=== PATIENT | female | born 1980 | race Caucasian/White ===

== ENCOUNTER 2018-05-10 06:04 | Day surgery (SDC) | payer MEDICAID ==
[2018-05-10] MEDS: CEFAZOLIN 2 GM/50 ML (PMX) 50 ML IVPB (06:00)
[2018-05-10] MEDS: LACTATED RINGER'S 1,000 ML IV* (06:00)
[2018-05-10] MEDS ORDERED: CEFAZOLIN 1 GM INJ (07:00)
[2018-05-10] MEDS ORDERED: DIPHENHYDRAMINE 50 MG INJ IV (07:30)
[2018-05-10] MEDS ORDERED: LABETALOL HCL 20MG INJ IV (07:30)
[2018-05-10] MEDS ORDERED: MEPERIDINE 25 MG INJ IV (07:30)
[2018-05-10] MEDS ORDERED: FENTAnyl 50 MCG/ML VIAL IV ×3 (07:30)
[2018-05-10] MEDS ORDERED: HYDROmorphONE 1 MG/5 ML IV SYRINGE IV ×3 (07:30)
[2018-05-10] MEDS ORDERED: PROCHLORPERAZINE 10 MG INJ IV (07:30)
[2018-05-10] MEDS ORDERED: ONDANSETRON 4 MG INJ IV (07:30)
[2018-05-10] MEDS ORDERED: hydrALAzine 20 MG INJ IV (07:30)
[2018-05-10 07:31] LABS: ADD MAN DIFF? NO
[2018-05-10 07:34] LABS: WHITE BLOOD COUNT 5.6 10^3/ul (4.8-10.8)
[2018-05-10 07:34] LABS: BASOPHILS % 0.4 % (0.0-2.0); EOSINOPHILS # 0.2 10^3/ul (0.0-0.5); EOSINOPHILS % 4.1 % (0.0-7.0); HEMATOCRIT 38.2 % (37.0-47.0); HEMOGLOBIN 12.6 g/dl (12.0-16.0); LYMPHOCYTES # 1.7 10^3/ul (0.8-2.9); LYMPHOCYTES % 30.9 % (15.0-51.0); MEAN CORPUSCULAR HEMOGLOBIN 29.3 pg (29.0-33.0); MEAN CORPUSCULAR VOLUME 88.8 fl (82.0-101.0); MEAN PLATELET VOLUME 11.1 fl (7.4-10.4); MONOCYTE # 0.4 10^3/ul (0.3-0.9); MONOCYTES % 6.8 % (0.0-11.0); NEUTROPHIL # 3.2 10^3/ul (1.6-7.5); NEUTROPHILS % 57.4 % (39.0-77.0); PLATELET COUNT 201 10^3/UL (140-415); RED CELL DISTRIBUTION WIDTH 13.1 % (11.5-14.5)
[2018-05-10 07:44] LABS: INR 1.06; PARTIAL THROMBOPLASTIN TIME 31.2 Sec (25.0-35.0); PROTIME 13.9 Sec (11.9-14.9); PT RATIO 1.1
[2018-05-10] MEDS ORDERED: MIDAZOLAM 1 MG/ML 2 ML INJ (07:49)
[2018-05-10] MEDS ORDERED: ROCURONIUM 50 MG INJ (07:55)
[2018-05-10] MEDS ORDERED: SUCCINYLCHOLINE CHLORIDE 100 MG/5 ML SYG IV (07:55)
[2018-05-10] MEDS ORDERED: PROPOFOL 20 ML (07:55)
[2018-05-10] MEDS ORDERED: LIDOCAINE 2% (SDV) 5 ML INJ (07:55)
[2018-05-10] MEDS ORDERED: FENTAnyl 50 MCG/ML VIAL (07:55)
[2018-05-10] MEDS ORDERED: ONDANSETRON 4 MG INJ (07:57)
[2018-05-10] MEDS ORDERED: DEXAMETHASONE 4 MG/ML 1 ML INJ (07:57)
[2018-05-10] MEDS ORDERED: FAMOTIDINE 20 MG INJ (07:57)
[2018-05-10] MEDS: BUPIVACAINE 0.25% (MPF) 30 ML INJ INJ (08:00)
[2018-05-10] MEDS ORDERED: EPHEDrine SULFATE 50 MG/5 ML SYG (08:00)
[2018-05-10] MEDS ORDERED: BUPIVACAINE 0.25% (MPF) 30 ML INJ (08:16)
[2018-05-10] MEDS ORDERED: SUGAMMADEX SODIUM 200 MG/2 ML VIAL IV (08:28)
[2018-05-10] MEDS ORDERED: KETOROLAC 30 MG INJ (08:31)
== END 2018-05-10 10:40 | disposition home or self-care (01) ==
LOC: SDS 06:04
DX: Z30.2 Encounter for sterilization (principal)
CPT/HCPCS: 58600; 85025; 85610; 85730; 93005